=== PATIENT | male | born 1940 | race Caucasian/White ===

== ENCOUNTER → 2022-07-10 09:53 | Outpatient (CLI) | payer MEDICARE, OTHER, SELFPAY ==
--- NOTE | 2022-07-12 02:14 | DI.NM.S_ITS ---
DATE OF SERVICE: 07/10/2022 PROCEDURE PERFORMED: Pharmacologic stress and rest myocardial perfusion imaging with gating to assess ejection fraction and regional wall motion. ORDERING PROVIDER: Dre Dominguez MD INDICATIONS: The patient is an 82-year-old male with recently discovered atrial fibrillation with associated chest discomfort. CARDIAC STRESS: Per protocol, 0.4 mg of regadenoson was infused, augmented with walking on the treadmill. With this, he had a slight increase in his heart rate, but no significant change in his blood pressure. He had no ischemic symptoms. His resting ECG shows probable sinus rhythm with occasional PACs, but normal ST segments. With stress, there are no appreciable ST-segment shifts. He continued to have occasional PACs, but no other significant arrhythmias. Per protocol, 26.4 millicuries of technetium-99m Myoview was injected and he was imaged 10 minutes later using a gated SPECT acquisition protocol. The day prior while at rest, he had been injected with 27.0 millicuries of technetium- 99m Myoview, and was imaged 20 minutes later, again using a gated SPECT acquisition protocol. FINDINGS: 1. Raw data: There is fair myocardial tracer uptake although with significant subdiaphragmatic tracer activity noted on the post-stress images which could introduce artifact. The lung/heart ratio is normal at 0.28 with a normal TID ratio of 0.89. 2. Quantitated gated SPECT: Post-stress ejection fraction is estimated to be 63% with probable subtle inferior wall hypokinesis. The resting ejection fraction is 58% with a similar contraction pattern with mild inferior hypokinesis and a borderline increased end-diastolic volume of 132 mL. 3. Myocardial perfusion imaging: Post-stress supine images show a moderate to severe perfusion defect in the proximal and mid inferior wall, extending into the mid to distal inferolateral wall. This defect improves, but does not completely resolve on the prone images suggesting that it likely reflects a true perfusion defect. The resting images show significant improvement in the defect, particularly proximally, although with a persistent slight defect in the distal inferolateral wall. IMPRESSION: 1. Abnormal myocardial perfusion study. 2. Predominantly reversible but partially fixed moderate to severe perfusion defect in the inferior wall, extending into the distal inferolateral wall that most likely reflects previous myocardial infarction with moderate marianne-infarct ischemia although specificity is somewhat reduced because of the subdiaphragmatic bowel activity that could be producing some shadowing in this area. Clinical correlation is recommended. 3. Preserved left ventricular systolic function with probable subtle inferior wall hypokinesis, supporting a probable previous nontransmural infarction. Left ventricular volumes are at the upper limits of normal. 4. No angina or ECG evidence of ischemia with pharmacologic stress. He was in sinus rhythm with frequent PACs and had no arrhythmias with stress. Candido Piedra - MALINDA/velia/oneil doc#: [id number]/job#: [id number] dd: 07/11/2022 16:39:00 dt: 07/12/2022 02:00:00 DICTATING MD/COPIES TO: Jerome Diaz MD; Dre Dominguez M.D. COPIES MNE: JOSSE;
== END ==
PROVIDERS: PCP Physician Assistant; Referring Provider Internal Medicine; Visit Provider Internal Medicine
DX: I48.91 Unspecified atrial fibrillation (principal); R07.89 Other chest pain; R94.39 Abnormal result of other cardiovascular function study
CPT/HCPCS: 78452; 93017; A9502; J2785

== ENCOUNTER 2023-08-16 10:24 | Emergency (ER) | payer MEDICARE, OTHER, SELFPAY ==
[2023-08-16] VITALS (10 sets, daily range): BP systolic 110–132; BP diastolic 60–88; PULSE 61–120; RESP 16–24; TEMP 36.2–36.6; O2SAT 95–98; BMI 31.8
--- NOTE | 2023-08-16 10:43 | DI.RAD.S_ITS ---
PROCEDURE: XR CHEST 1V INDICATIONS: chest pain TECHNIQUE: One view of the chest was acquired. COMPARISON: None. FINDINGS: Surgical changes and devices: None. Lungs and pleura: Lungs are clear. No pleural effusions or pneumothorax. Mediastinum: Mediastinal contours appear normal. Heart size is normal. Bones and chest wall: No suspicious bony lesions. Overlying soft tissues appear unremarkable. IMPRESSION: No acute pulmonary process. Dictated by: Cherie Jaramillo M.D. on 08/16/2023 at 11:15 Approved by: Cherie Jaramillo M.D. on 08/16/2023 at 11:15
--- NOTE | 2023-08-16 10:52 | ED_ITS ---
HPI - Arrhythmia/Palpitations General Chief Complaint: Arrhythmia/Palpitations Stated Complaint: AFIB Time Seen by Provider: 08/16/23 10:52 History of Present Illness HPI narrative: 83-year-old male with history of atrial fibrillation, hypertension presents with complaint of feeling little lightheaded decreased energy, he checked his blood pressure and heart rate every single day typically in the 60s for his heart rate and was 114 at home. Patient states no chest pain, no shortness of breath, he does not feel that his heart rate is fast or irregular. He states when he was 1st diagnosed a year ago he did not feel it at that time either. Denies any nausea or vomiting, no syncope. No fevers or chills. No cold cough or congestion. No abdominal back or flank pain, no swelling in extremities no urinary symptoms, no issues with bowel movements. Patient is on diltiazem 180 mg nightly, Eliquis 5 mg b.i.d., aspirin 81 mg daily and losartan 50 mg daily. Him and his note they decreased him from 120 mg diltiazem in the morning and 180 mg diltiazem in the evening to just his evening dose 6 months ago. Patient states prior appendectomy. He has never had any cardiac interventions no ablations or cardioversions. No tobacco, alcohol or recreational drugs. 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 He would his note that he took a dose of 120 mg diltiazem at about 9:00 a.m. this morning. Review of Systems Review of Systems ROS Unobtainable: All systems reviewed & are unremarkable except as noted in HPI and below Exam Narrative Exam Narrative: GENERAL: Alert and oriented x three, well-appearing male in mild distress HEENT: Head normocephalic, atraumatic, EOMI, pupils reactive, face symmetric, moist mucous membranes NECK: Supple, full range of motion CARDIOVASCULAR: Rate controlled but occasionally irregular rhythm without murmurs, rubs or gallops. No JVD. RESPIRATORY: Breath sounds equal bilaterally, no wheezes rales or rhonchi. ABDOMEN: Soft, nontender. Normoactive bowel sounds all 4 quadrants. No guarding or rebound, rigidity, no mass : No CVA tenderness EXTREMITIES: Normal range of motion, no clubbing or edema. Neurovascularly intact NEUROLOGICAL: Cranial nerves II through XII grossly intact. Moving all extremities SKIN: Warm, dry, no petechiae, no rashes or lesions. Initial Vital Signs Initial Vital Signs: Vital Signs Pulse Rate 120 H 08/16/23 10:30 Blood Pressure 132/88 08/16/23 10:30 Pulse Oximetry 96 08/16/23 10:30 Course Orders Ordered: Discontinued Medications Sodium Chloride (Normal Saline 0.9%) 1,000 mls @ 500 mls/hr IV BOLUS ONE Stop: 08/16/23 13:01 Last Admin: 08/16/23 11:32 Dose: 500 mls/hr Documented By: MARIO Vital Signs Vital signs: Vital Signs - 8 hr 08/16/23 10:30 08/16/23 10:30 08/16/23 10:32 Temperature 97.8 F Pulse Rate 120 H 120 H Respiratory Rate 16 Blood Pressure 132/88 132/88 Pulse Oximetry 96 96 Oxygen Delivery Method Room Air 08/16/23 11:00 08/16/23 11:01 08/16/23 11:01 Temperature Pulse Rate 83 90 Respiratory Rate 24 21 Blood Pressure 130/60 Pulse Oximetry 95 95 Oxygen Delivery Method 08/16/23 11:30 08/16/23 11:30 08/16/23 12:00 Temperature Pulse Rate 79 77 Respiratory Rate 22 20 Blood Pressure 120/77 Pulse Oximetry 96 95 Oxygen Delivery Method 08/16/23 12:00 08/16/23 12:30 08/16/23 12:30 Temperature Pulse Rate 87 Respiratory Rate 18 Blood Pressure 116/72 110/71 Pulse Oximetry 95 Oxygen Delivery Method 08/16/23 13:00 08/16/23 13:00 Temperature Pulse Rate 73 Respiratory Rate 20 Blood Pressure 122/76 Pulse Oximetry 95 Oxygen Delivery Method MDM - Arrhythmia/Palpitations Lab Data 08/16/23 10:35 08/16/23 10:35 Labs: Lab Results 08/16/23 Range/Units 10:35 WBC 6.8 (4.5-11.0) X10^3/uL RBC 4.90 (4.5-5.9) X10^6/uL Hgb 15.0 (13.5-17.5) g/dL Hct 43.9 (41-53) % MCV 89.6 (80-100) fL MCH 30.5 (26-34) PG MCHC 34.1 (30-36) % RDW 13.9 (11.6-14.8) % Plt Count 170 (150-400) X10^3/uL Neut % (Auto) 53.8 (50-75) % Lymph % (Auto) 35.7 (25-40) % [place] % (Auto) 7.7 (3-14) % Eos % (Auto) 2.1 (2-4) % Baso % (Auto) 0.7 (0-2) % Neut # (Auto) 3700 (7103-5063) /uL Lymph # (Auto) 2400 (7222-6662) /uL [place] # (Auto) 500 (0-900) /uL Eos # (Auto) 100 (0-450) /uL Baso # (Auto) 0 (0-100) /uL PT 16.8 H (9.4-12.5) SECONDS INR 1.5 H (0.9-1.3) APTT 43 H (25.1-36.5) SECONDS Sodium 141 (137-145) mmol/L Potassium 4.4 (3.4-5.1) mmol/L Chloride 108 H (98-107) mmol/L Carbon Dioxide 28 (22-32) mmol/L BUN 17 (9-20) mg/dL Creatinine 0.94 (0.66-1.25) mg/dL Estimated GFR > 60 (>60) mL/min BUN/Creatinine Ratio 18.1 (6-22) Glucose 116 H (80-110) mg/dL Calcium 9.7 (8.4-10.2) mg/dL Magnesium 2.4 H (1.6-2.3) mg/dL Total Bilirubin 1.1 (0.2-1.3) mg/dL AST 29 (17-59) IU/L ALT 19 (<50) IU/L Alkaline Phosphatase 85 (38-126) U/L Total Creatine Kinase 60 (55-170) U/L Troponin I < 0.012 (0.01-0.034) ng/mL Total Protein 7.2 (6.3-8.2) g/dL Albumin 4.5 (3.5-5.0) g/dL Globulin 2.7 (1.7-4.1) g/dL Albumin/Globulin Ratio 1.7 (1.0-2.8) Lipase 105 (23-300) U/L Imaging Data Chest x-ray: Radiologist's Impresson: Close Chest X-Ray (Signed) Cherie Jaramillo - 08/16/23 Radiology Report (Cancelled) Jerome Diaz - 07/12/22 Myocardial Perfusion Scan Nuc Med (Signed) Jerome Diaz - 07/12/22 Launch?[address] [address] XRay Report Signed Patient: Candido Piedra MR#: [id number] : 1940 Acct:[id number] Age/Sex: 83 / M Date of Service: 08/16/23 Loc: ED Accession Number: [id number] Procedure: XR chest 1V Ordering Provider: Ngoc Dotson D.O. PROCEDURE: XR CHEST 1V INDICATIONS: chest pain TECHNIQUE: One view of the chest was acquired. COMPARISON: None. FINDINGS: Surgical changes and devices: None. Lungs and pleura: Lungs are clear. No pleural effusions or pneumothorax. Mediastinum: Mediastinal contours appear normal. Heart size is normal. Bones and chest wall: No suspicious bony lesions. Overlying soft tissues appear unremarkable. IMPRESSION: No acute pulmonary process. Dictated by: Cherie Jaramillo M.D. on 08/16/2023 at 11:15 Approved by: Cherie Jaramillo M.D. on 08/16/2023 at 11:15 ECG Data Attestation: I personally reviewed and interpreted this ECG as follows: Prior ECG tracings: not available for review Interpretation: Possible junctional rhythm patient does not appear to be in AFib RVR, rate of 108 QRS is 72 QTC of 434. Patient has very regular on this EKG0 P waves appear on some of the complexes. No priors for comparison. MDM Narrative Medical decision making narrative: 83-year-old male with complaint of atrial fibrillation, patient noted heart rate was elevated he felt a little lightheaded today. He did take a dose of diltiazem 120 mg prior to arriving. He appears to be in rate controlled currently with a heart rate pretty consistently 70s to 90s in the department was 108 with possible junctional rhythm but regular rhythm on EKG 10 40. Labs show normal CBC, coags show an INR 1.5 patient is on Eliquis and aspirin daily, sodium is 141 potassium is 4.4 chloride 108 CO2 is 28 with a BUN of 17 creatinine 0.94 glucose of 116, magnesium 2 4, LFTs are negative troponins less than 0.012. Chest x-ray shows no acute change. Patient was given some gentle fluids. Patient appears to be rate controlled and not an persistent atrial fibrillation he is appropriately anticoagulated. He may have been in AFib prior to his arrival and had improvement after taking diltiazem this morning. Patient's heart rates been persistently 70 to 90s, still in AFib but rate controlled. He is otherwise asymptomatic and feels much better. After discussion patient can be in and out of AFib he has been known to be paroxysmal and felt not to require cardioversion today. Spoke with Dr. Peterson with Cardiology, patient has what sounds like paroxysmal atrial fibrillation felt not to require cardioversion and he agrees we will have patient increase back to 120 mg of diltiazem twice daily for the time being. Spoke with patient and family they feel comfortable with this plan. They have plenty of medication they had a 90 day refill before being switched Discharge Plan Departure Patient Disposition: Home Clinical Impression: Atrial fibrillation Instructions: DI for Atrial Fibrillation Activity Restrictions/Additional Instructions: Please follow up with Cardiology, I did talk with your team today. I would recommend taking 120 mg diltiazem twice daily until you see your professional driver. Continue your other home medications as prescribed. If you have recurrent symptoms, new chest pain, shortness of breath, lightheadedness or passing out, new swelling in your extremities, nausea or vomiting or diaphoresis please return for re-evaluation. Referrals: Karon Pratt PA-C [Primary Care Provider] - Ren Vickers MD [Physician] - Stand Alone Forms: Patient Portal/API
[2023-08-16 10:54] LABS: INR 1.5 (0.9-1.3); Prothrombin Time 16.8 SECONDS (9.4-12.5)
[2023-08-16 10:57] LABS: PTT Partial Thromboplastin Tim 43 SECONDS (25.1-36.5)
[2023-08-16 10:59] LABS: Alanine Aminotransferase 19 IU/L (<50); Albumin 4.5 g/dL (3.5-5.0); Albumin Globulin Ratio 1.7 (1.0-2.8); Alkaline Phosphatase 85 U/L (38-126); Aspartate Aminotransferase 29 IU/L (17-59); BUN Creatinine Ratio 18.1 (6-22); Bilirubin Total 1.1 mg/dL (0.2-1.3); Blood Urea Nitrogen 17 mg/dL (9-20); Calcium 9.7 mg/dL (8.4-10.2); Carbon Dioxide 28 mmol/L (22-32); Chloride 108 mmol/L (98-107); Creatine Kinase 60 U/L (55-170); Estimated Glomerular Filt Rate > 60 mL/min (>60); Globulin 2.7 g/dL (1.7-4.1); Glucose 116 mg/dL (80-110); HEMOLYSIS < 15 (0-50); Lipase 105 U/L (23-300); Magnesium 2.4 mg/dL (1.6-2.3); Potassium 4.4 mmol/L (3.4-5.1); Sodium 141 mmol/L (137-145); Total Protein 7.2 g/dL (6.3-8.2)
[2023-08-16 11:07] LABS: Add Manual Diff / Slide Review NO; Basophils Absolute Auto 0 /uL (0-100); Basophils Percent Auto 0.7 % (0-2); Eosinophils Absolute Auto 100 /uL (0-450); Eosinophils Percent Auto 2.1 % (2-4); Hematocrit 43.9 % (41-53); Lymphocytes Absolute Auto 2400 /uL (1100-4500); Lymphocytes Percent Auto 35.7 % (25-40); Mean Corpuscular HGB Conc 34.1 % (30-36); Mean Corpuscular Hemoglobin 30.5 PG (26-34); Mean Corpuscular Volume 89.6 fL (80-100); Monocytes Absolute Auto 500 /uL (0-900); Monocytes Percent Auto 7.7 % (3-14); Neutrophils Absolute Auto 3700 /uL (1500-7000); Neutrophils Percent Auto 53.8 % (50-75); Platelet Count 170 X10^3/uL (150-400); Red Cell Distribution Width 13.9 % (11.6-14.8); White Blood Cell Count 6.8 X10^3/uL (4.5-11.0)
[2023-08-16 11:10] LABS: Troponin I < 0.012 ng/mL (0.01-0.034)
[2023-08-16] MEDS: SODIUM CHLORIDE 0.9% 1,000 ML 500 ML IV (11:32)
== END 2023-08-16 13:54 | disposition home or self-care (01) ==
PROVIDERS: Emergency Provider Emergency Medicine; PCP Physician Assistant
DX: I48.91 Unspecified atrial fibrillation (principal); R00.2 Palpitations; R07.9 Chest pain, unspecified; Z79.01 Long term (current) use of anticoagulants
CPT/HCPCS: 36415; 71045; 80053; 82550; 83690; 83735; 84484; 85025; 85610; 85730; 93005; 93010; 99284

== ENCOUNTER 2023-08-18 00:27 | Emergency (ER) | payer MEDICARE, OTHER, SELFPAY ==
[2023-08-18] VITALS (16 sets, daily range): BP systolic 112–158; BP diastolic 67–95; PULSE 63–116; RESP 16–25; TEMP 36.3; O2SAT 94–97; BMI 31.1
--- NOTE | 2023-08-18 00:45 | PC.NURSE ---
pt states he was seen here yesterday for the same but his medication started working and he did not have to be cardioverted. pt has a cardiology follow-up appt tomorrow, but want to come in because he doesn't want to have a stroke
[2023-08-18 01:02] LABS: Add Manual Diff / Slide Review NO; Basophils Absolute Auto 0 /uL (0-100); Basophils Percent Auto 0.1 % (0-2); Eosinophils Absolute Auto 200 /uL (0-450); Eosinophils Percent Auto 2.5 % (2-4); Hematocrit 43.8 % (41-53); Lymphocytes Absolute Auto 3100 /uL (1100-4500); Lymphocytes Percent Auto 40.2 % (25-40); Mean Corpuscular HGB Conc 34.2 % (30-36); Mean Corpuscular Hemoglobin 30.5 PG (26-34); Mean Corpuscular Volume 89.2 fL (80-100); Monocytes Absolute Auto 300 /uL (0-900); Monocytes Percent Auto 4.4 % (3-14); Neutrophils Absolute Auto 4100 /uL (1500-7000); Neutrophils Percent Auto 52.8 % (50-75); Platelet Count 161 X10^3/uL (150-400); Red Blood Cell Count 4.91 X10^6/uL (4.5-5.9); Red Cell Distribution Width 13.8 % (11.6-14.8); White Blood Cell Count 7.7 X10^3/uL (4.5-11.0)
--- NOTE | 2023-08-18 01:02 | ED_ITS ---
HPI - Arrhythmia/Palpitations General Chief Complaint: Arrhythmia/Palpitations Stated Complaint: afib Time Seen by Provider: 08/18/23 00:39 Source: patient Mode of arrival: Ambulatory History of Present Illness HPI narrative: 83-year-old male with history of atrial fibrillation on Eliquis presents for atrial fibrillation. Patient states that he checked his pulse today and it was elevated over 100 beats per minute. He was in the emergency department yesterday for same complaint but at that time his pulse was between 70s-90s. He was discharged with instructions to take 120 mg of diltiazem twice daily. Patient states that even after taking his nightly diltiazem his pulse remained over 100 so he decided to present for evaluation. He states that he otherwise feels normal and has no complaints other than an abnormal pulse. He states that he was only able to notice his elevated pulse when he takes his vitals at night on his BP machine Review of Systems Review of Systems Narrative: See HPI Patient History Social History Smoking Status: Never smoker Smoking Status: Never smoker alcohol intake frequency: holidays/special occasions only Substance Use Type: does not use Exam Initial Vital Signs Initial Vital Signs: Vital Signs Temperature 97.3 F L 08/18/23 00:38 Pulse Rate 116 H 08/18/23 00:38 Respiratory Rate 18 08/18/23 00:38 Blood Pressure 158/95 H 08/18/23 00:38 Pulse Oximetry 97 08/18/23 00:38 Oxygen Delivery Method Room Air 08/18/23 00:38 Const: Awake, alert, no acute distress, nontoxic appearing Cardiac: Tachycardia, irregularly irregular RESP: unlabored, clear bilaterally, no wheezing Skin: Warm, Dry, intact, no rashes Neuro: AO x3, CN II-XII grossly intact, moves all extremities Course Orders Ordered: ED Orders 08/18/23 00:50 Complete Blood Count AUTO DIFF Stat Comprehensive Metabolic Panel Stat Lipase Stat Magnesium Stat PTT Partial Thromboplastin [place] Stat Prothrombin Time INR Stat Troponin & CK Cardiac Panel Stat 08/18/23 00:56 EKG-12 Lead Stat Discontinued Medications Aspirin (Aspirin 81 Mg Chew Tab) 324 mg PO NOW ONE Stop: 08/18/23 00:57 Last Admin: 08/18/23 01:40 Dose: Not Given Documented By: TED Diltiazem HCl (Diltiazem 5 Mg/Ml Sdv) 20 mg IV NOW ONE Stop: 08/18/23 01:01 Last Admin: 08/18/23 01:14 Dose: 20 mg Documented By: TED Diltiazem HCl (Diltiazem 5 Mg/Ml Sdv) 20 mg IV NOW ONE Stop: 08/18/23 02:05 Last Admin: 08/18/23 02:51 Dose: 20 mg Documented By: DELPHINE Vital Signs Vital signs: Vital Signs - 8 hr 08/18/23 00:38 08/18/23 00:52 08/18/23 01:00 Temperature 97.3 F L Pulse Rate 116 H 114 H 115 H Respiratory Rate 18 21 18 Blood Pressure 158/95 H Pulse Oximetry 97 96 96 Oxygen Delivery Method Room Air 08/18/23 01:01 08/18/23 01:01 08/18/23 01:14 Temperature Pulse Rate 113 H 113 H Respiratory Rate 18 Blood Pressure 134/87 134/87 Pulse Oximetry 95 Oxygen Delivery Method 08/18/23 01:19 08/18/23 01:19 08/18/23 01:20 Temperature Pulse Rate 108 H 94 H Respiratory Rate 21 20 Blood Pressure 124/77 Pulse Oximetry 95 94 Oxygen Delivery Method 08/18/23 01:20 08/18/23 01:22 08/18/23 01:30 Temperature Pulse Rate 105 H 105 H Respiratory Rate 18 23 Blood Pressure 112/67 112/67 Pulse Oximetry 95 Oxygen Delivery Method 08/18/23 01:41 08/18/23 01:41 08/18/23 02:02 Temperature Pulse Rate 106 H 63 Respiratory Rate 18 Blood Pressure 136/75 Pulse Oximetry 95 96 Oxygen Delivery Method 08/18/23 02:04 08/18/23 02:04 08/18/23 02:20 Temperature Pulse Rate 106 H 102 H Respiratory Rate 20 17 Blood Pressure 145/86 H Pulse Oximetry 95 95 Oxygen Delivery Method 08/18/23 02:20 08/18/23 02:30 08/18/23 02:40 Temperature Pulse Rate 97 H 73 Respiratory Rate 25 H 19 Blood Pressure 134/86 Pulse Oximetry 94 95 Oxygen Delivery Method 08/18/23 02:40 08/18/23 03:00 Temperature Pulse Rate 75 Respiratory Rate 16 Blood Pressure 134/79 134/79 Pulse Oximetry 96 Oxygen Delivery Method Room Air MDM - Arrhythmia/Palpitations Differential Diagnosis Differential diagnosis: Likely palpitations, anxiety and sinus tachycardia Lab Data 08/18/23 00:50 08/18/23 00:50 Labs: Lab Results 08/18/23 Range/Units 00:50 WBC 7.7 (4.5-11.0) X10^3/uL RBC 4.91 (4.5-5.9) X10^6/uL Hgb 15.0 (13.5-17.5) g/dL Hct 43.8 (41-53) % MCV 89.2 (80-100) fL MCH 30.5 (26-34) PG MCHC 34.2 (30-36) % RDW 13.8 (11.6-14.8) % Plt Count 161 (150-400) X10^3/uL Neut % (Auto) 52.8 (50-75) % Lymph % (Auto) 40.2 H (25-40) % [place] % (Auto) 4.4 (3-14) % Eos % (Auto) 2.5 (2-4) % Baso % (Auto) 0.1 (0-2) % Neut # (Auto) 4100 (1862-7657) /uL Lymph # (Auto) 3100 (4056-3559) /uL [place] # (Auto) 300 (0-900) /uL Eos # (Auto) 200 (0-450) /uL Baso # (Auto) 0 (0-100) /uL PT 17.3 H (9.4-12.5) SECONDS INR 1.5 H (0.9-1.3) APTT 42 H (25.1-36.5) SECONDS Sodium 139 (137-145) mmol/L Potassium 3.9 (3.4-5.1) mmol/L Chloride 109 H (98-107) mmol/L Carbon Dioxide 24 (22-32) mmol/L BUN 14 (9-20) mg/dL Creatinine 0.87 (0.66-1.25) mg/dL Estimated GFR > 60 (>60) mL/min BUN/Creatinine Ratio 16.1 (6-22) Glucose 95 (80-110) mg/dL Calcium 9.6 (8.4-10.2) mg/dL Magnesium 2.1 (1.6-2.3) mg/dL Total Bilirubin 0.8 (0.2-1.3) mg/dL AST 30 (17-59) IU/L ALT 18 (<50) IU/L Alkaline Phosphatase 103 (38-126) U/L Total Creatine Kinase 45 L (55-170) U/L Troponin I < 0.012 (0.01-0.034) ng/mL Total Protein 7.3 (6.3-8.2) g/dL Albumin 4.5 (3.5-5.0) g/dL Globulin 2.8 (1.7-4.1) g/dL Albumin/Globulin Ratio 1.6 (1.0-2.8) Lipase 146 (23-300) U/L ECG Data Interpretation: Atrial fibrillation at 160 beats per minute. No ST T wave changes, normal axis MDM Narrative Medical decision making narrative: Well-appearing patient with incidentally noticed tachycardia. Patient has no symptoms, the only way he knew that his heart rate was elevated is because he was taking his nightly vitals on his blood pressure machine. Repeat laboratory work virtually unchanged from yesterday, electrolytes are within normal limits, magnesium within normal limits, EKG shows no ischemic findings. Patient received 2 doses of IV diltiazem with correction in heart rate to 60s to 70s. Patient advised to increase diltiazem 200 any mg twice daily with instructions to monitor his blood pressure to ensure that it was not drop too low. He states that he will call his parts counterperson 1st thing in the morning for a follow up appointment. Discharge Plan Departure Patient Disposition: Home Clinical Impression: Atrial fibrillation Instructions: DI for Atrial Fibrillation Activity Restrictions/Additional Instructions: Increase your diltiazem dose to 180mg twice daily. Continue your Eliquis. Follow up with your parts counterperson. If you notice your heart rate is still not controlled with 180mg twice daily you can increase to 240mg twice daily. Make sure your blood pressure does not drop too much. If you notice chest pain, weakness, lightheadedness please return to the emergency department for evaluation. Referrals: Karon Pratt PA-C [Primary Care Provider] - Stand Alone Forms: Patient Portal/API
[2023-08-18 01:09] LABS: INR 1.5 (0.9-1.3); Prothrombin Time 17.3 SECONDS (9.4-12.5)
[2023-08-18 01:12] LABS: PTT Partial Thromboplastin Tim 42 SECONDS (25.1-36.5)
[2023-08-18 01:14] LABS: Alanine Aminotransferase 18 IU/L (<50); Albumin 4.5 g/dL (3.5-5.0); Albumin Globulin Ratio 1.6 (1.0-2.8); Alkaline Phosphatase 103 U/L (38-126); Aspartate Aminotransferase 30 IU/L (17-59); BUN Creatinine Ratio 16.1 (6-22); Bilirubin Total 0.8 mg/dL (0.2-1.3); Blood Urea Nitrogen 14 mg/dL (9-20); Calcium 9.6 mg/dL (8.4-10.2); Carbon Dioxide 24 mmol/L (22-32); Chloride 109 mmol/L (98-107); Creatine Kinase 45 U/L (55-170); Estimated Glomerular Filt Rate > 60 mL/min (>60); Globulin 2.8 g/dL (1.7-4.1); Glucose 95 mg/dL (80-110); HEMOLYSIS 19 (0-50); Lipase 146 U/L (23-300); Magnesium 2.1 mg/dL (1.6-2.3); Potassium 3.9 mmol/L (3.4-5.1); Sodium 139 mmol/L (137-145); Total Protein 7.3 g/dL (6.3-8.2)
[2023-08-18] MEDS: dilTIAZem 5 MG/ML SDV 20 MG IV ×2 (01:14→02:51)
[2023-08-18 01:26] LABS: Troponin I < 0.012 ng/mL (0.01-0.034)
== END 2023-08-18 03:02 | disposition home or self-care (01) ==
PROVIDERS: Emergency Provider Emergency Medicine; PCP Physician Assistant
DX: I48.91 Unspecified atrial fibrillation (principal)
CPT/HCPCS: 36415; 80053; 82550; 83690; 83735; 84484; 85025; 85610; 85730; 93005; 96374; 96375; 99284

== ENCOUNTER → 2024-01-06 11:24 | Outpatient (CLI) | payer MEDICARE, OTHER, SELFPAY ==
[2024-01-06 13:37] LABS: Alanine Aminotransferase 20 IU/L (<50); Albumin 4.1 g/dL (3.5-5.0); Albumin Globulin Ratio 1.4 (1.0-2.8); Alkaline Phosphatase 109 U/L (38-126); Aspartate Aminotransferase 32 IU/L (17-59); Bilirubin Total 0.9 mg/dL (0.2-1.3); Bilirubin Unconjugated 0.3 mg/dL (0.0-1.1); Globulin 2.9 g/dL (1.7-4.1); HEMOLYSIS < 15 (0-50)
[2024-01-06 14:06] LABS: TSH w/ Reflex to FT4 6.28 uIU/mL (0.47-4.68)
[2024-01-06 14:35] LABS: Free T4, Direct Thyroxine 0.88 ng/dL (0.78-2.19)
== END ==
PROVIDERS: PCP Physician Assistant; Referring Provider Nurse Practitioner Family; Visit Provider Nurse Practitioner Family
DX: I48.0 Paroxysmal atrial fibrillation (principal)
CPT/HCPCS: 36415; 80076; 84439; 84443